=== PATIENT | female | born 1995 | race Caucasian/White ===

== ENCOUNTER 2017-10-14 13:23 | Emergency (ER) | payer OTHER ==
[2017-10-14] MEDS ORDERED: KETOROLAC 30 MG/ML INJ ONE (14:26)
[2017-10-14] MEDS ORDERED: NA CHLORIDE 0.9% 1,000 ML ONE (14:26)
[2017-10-14 14:40] LABS: Urine Blood NEGATIVE (NEG); Urine Glucose NEGATIVE (NEG); Urine Protein TRACE (NEG); Urine pH 6.5 (5.0-7.0)
[2017-10-14 14:47] LABS: Absolute Lymphocytes (CBC) 2.8 K/uL (0.7-4.9); Absolute Monocytes 0.9 K/uL (0.1-1.3); Basophils % 0.5 % (0-1.3); Eosinophils % 1.1 % (0-4.4); Hematocrit 25.5 % (36.0-45.0); Lymphocytes % 23.4 % (15.3-44.8); MCH 32.3 pg (27.0-35.0); MPV 6.8 fL (7.6-11.3); Monocytes % 7.7 % (3.3-12.3); RBC Red Blood Cell Count 2.72 M/uL (3.86-4.86)
[2017-10-14 14:58] LABS: Urine Bacteria <20 /HPF (<20); Urine RBC <5 /HPF (NONE SEEN)
[2017-10-14 14:59] LABS: ALT/SGPT 17 U/L (12-78); AST/SGOT 12 U/L (15-37); Albumin 3.1 g/dL (3.4-5.0); Alkaline Phosphatase 68 U/L (45-117); Amylase Level 25 U/L (25-115); BUN Blood Urea Nitrogen 12 mg/dL (7-18); Bicarbonate 23 mmol/L (21-32); Bilirubin Direct < 0.1 mg/dL (0-0.2); Bilirubin Total 0.2 mg/dL (0.2-1.0); Glucose Level 79 mg/dL (74-106); Lipase 58 U/L (73-393); Potassium 4.1 mmol/L (3.5-5.1); Protein, Total 6.5 g/dL (6.4-8.2); Sodium Level 139 mmol/L (136-145)
[2017-10-14 14:59] LABS: Urine Culture Reflex Order NOT NEEDED
--- NOTE | 2017-10-14 15:11 | RAD REPORT ---
EXAM DESCRIPTION: CTAbdomen Pelvis W Contrast - 10/14/2017 2:47 pm CLINICAL HISTORY: Abdominal pain. IV only;Abd pain COMPARISON: CT ABD PELVIS W CONTRAST dated 11/06/2007; CT ABD PELVIS W CONTRAST dated 10/22/2007; CT AB D PELVIS W CONTRAST dated 01/06/2010 TECHNIQUE: Biphasic CT imaging of the abdomen and pelvis was performed with 100 ml non-ionic IV cont rast. All CT scans are performed using dose optimization technique as appropriate and may include automated exposure control or mA/KV adjustment according to patient size. FINDINGS: The lung bases are clear. The liver, spleen, pancreas, adrenal glands and left kidney are within normal limits. Mild right hydr onephrosis and hydroureter is seen without obstructing calculus. No bowel obstruction, free air, free fluid or abscess. Moderate fecal retention in the colon. The dae endix is not identified as a discrete structure, however, no secondary findings of appendicitis are i dentified. No evidence of significant lymphadenopathy. Enlarged uterus is present with fluid and soft tissue in the endometrial canal. Subcutaneo us air anterior pelvis soft tissues with trace fluid is likely postsurgical nature. No suspicious bony findings. IMPRESSION: Moderate fecal retention in the colon. uterus with fluid and soft tissue material in the endometrial canal. Mild right hydronephrosis and hydroureter without obstructing calculus identified.
[2017-10-14] MEDS ORDERED: BISACODYL E.C. 5 MG TAB PO ONE (16:37)
[2017-10-14] MEDS ORDERED: MAGNE/ALUM HYDROXD 30 ML UCUP ONE (16:53)
--- NOTE | 2017-10-14 18:15 | ER ---
Nurse's Notes [facility] Name: Marjorie Alcaraz Age: 22 yrs Sex: Female : 1995 Arrival Date: 10/14/2017 Time: 13:25 Bed 25 Private MD: Diagnosis: Constipation;Anemia, unspecified;Other abdominal pain Presentation: 10/14 13:28 Presenting complaint: Patient states: Constipation for 2 weeks. Patient reports recent aj delivery 1 week ago. Transition of care: patient was not received from another setting of care. Onset of symptoms was October 07, 2017. Risk Assessment: Do you want to hurt yourself or someone else? Patient reports no desire to harm self or others. Initial Sepsis Screen: Does the patient meet any 2 criteria? No. Patient's initial sepsis screen is negative. Does the patient have a suspected source of infection? No. Patient's initial sepsis screen is negative. Care prior to arrival: None. 13:28 Method Of Arrival: Ambulatory aj 13:28 Acuity: TOBIAS 3 aj Triage Assessment: 13:30 General: Appears in no apparent distress. comfortable, Behavior is calm, cooperative, aj appropriate for age. Pain: Complains of pain in anus. Neuro: Level of Consciousness is awake, alert, obeys commands, Oriented to person, place, time, situation, Appropriate for age. Respiratory: Airway is patent Respiratory effort is even, unlabored, Respiratory pattern is regular, symmetrical. GI: Reports constipation. Derm: Skin is intact, is healthy with good turgor, Skin is pink, warm \T\ dry. normal. 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 - Social history:: Smoking status: Patient uses tobacco products, smokes one-half pack cigarettes per day. - Ebola Screening: : Patient negative for fever greater than or equal to 101.5 degrees Fahrenheit, and additional compatible Ebola Virus Disease symptoms Patient denies exposure to infectious person Patient denies travel to an Ebola-affected area in the 21 days before illness onset No symptoms or risks identified at this time. Screenin:40 Abuse screen: Denies threats or abuse. Denies injuries from another. Nutritional kr2 screening: No deficits noted. Tuberculosis screening: No symptoms or risk factors identified. Fall Risk None identified. Assessment: 13:30 General: Appears in no apparent distress. uncomfortable, well groomed, well developed, kr2 well nourished, Behavior is calm, cooperative, appropriate for age. Pain: Complains of pain in pelvis and anus Pain currently is 10 out of 10 on a pain scale. Quality of pain is described as aching, pressure, Is continuous, Alleviated by nothing. Neuro: Level of Consciousness is awake, alert, obeys commands, Oriented to person, place, time, situation, Appropriate for age. Cardiovascular: Capillary refill < 3 seconds in bilateral fingers Patient's skin is warm and dry. Respiratory: Airway is patent Respiratory effort is even, unlabored, Respiratory pattern is regular, symmetrical. GI: Bowel sounds hypoactive in right lower quadrant and left lower quadrant Abd is rigid X 4 quads. : Denies burning with urination. EENT: Oral mucosa is moist. Derm: Skin is intact, is healthy with good turgor, Skin is pink, warm \T\ dry. Musculoskeletal: Circulation, motion, and sensation intact. 15:49 Reassessment: Patient appears in no apparent distress at this time. Patient and/or kr2 family updated on plan of care and expected duration. Pain level reassessed. Patient is alert, oriented x 3, equal unlabored respirations, skin warm/dry/pink. 16:30 Reassessment: Patient appears in no apparent distress at this time. Patient and/or kr2 family updated on plan of care and expected duration. Pain level reassessed. Patient is alert, oriented x 3, equal unlabored respirations, skin warm/dry/pink. 17:30 Reassessment: Patient up to ambulate to promote bowel movement. kr2 18:00 Reassessment: Patient appears in no apparent distress at this time. Patient and/or kr2 family updated on plan of care and expected duration. Pain level reassessed. Patient is alert, oriented x 3, equal unlabored respirations, skin warm/dry/pink. Administered soap suds enema as ordered. Patient tolerated well. 18:15 Reassessment: Patient up to restroom, reports she passed a large piece of stool. kr2 18:21 Reassessment: Patient up to bathroom again at this time, enema and medications kr2 effective. Vital Signs: 13:30 BP 128 / 80; Pulse 97; Resp 16; Temp 97.4; Pulse Ox 100% on R/A; Weight 58.97 kg; aj Height 5 ft. 0 in. (152.40 cm); 14:00 BP 114 / 78; Pulse 79; Resp 16; Pulse Ox 98% on R/A; kr2 15:50 BP 102 / 64; Pulse 75; Resp 17; Pulse Ox 100% on R/A; kr2 18:31 BP 116 / 98; Pulse 91; Resp 17; Pulse Ox 100% on R/A; kr2 13:30 Body Mass Index 25.39 (58.97 kg, 152.40 cm) ED Course: 13:25 Patient arrived in ED. as 13:30 Triage completed. aj 13:30 Arm band placed on right wrist. Patient placed in an exam room. aj 13:40 Patient has correct armband on for positive identification. Bed in low position. Call kr2 light in reach. Side rails up X2. Adult w/ patient. Pulse ox on. NIBP on. Door closed. Warm blanket given. Head of bed elevated. 13:59 Cady Davies NP is PHCP. 1 13:59 Marshal Vazquez MD is Attending Physician. rh1 13:59 Briana Pizano, RUBEN is Primary Nurse. kr2 14:00 Urine collected: clean catch specimen, cloudy. kr2 14:27 Radiology exam delayed due to IV insertion attempt and/or patient not having kw1 appropriate IV at this time. 14:30 Inserted saline lock: 20 gauge in right antecubital area, using aseptic technique. kr2 Blood collected. 14:45 CT completed. Patient moved to CT via wheelchair. Patient moved back from CT. cw1 14:48 CT Abd/Pelvis - W/Contrast In Process Unspecified. EDMS 18:31 No provider procedures requiring assistance completed. kr2 18:42 IV discontinued, intact, bleeding controlled, No redness/swelling at site. Pressure kr2 dressing applied. Administered Medications: 14:38 Drug: NS 0.9% 1000 ml Route: IV; Rate: 1 bolus; Site: right antecubital; kr2 16:00 Follow up: Response: No adverse reaction; IV Status: Completed infusion kr2 14:38 Drug: Ketorolac 30 mg Route: IVP; Site: right antecubital; kr2 15:00 Follow up: Response: No adverse reaction; Pain is decreased kr2 16:43 Drug: Dulcolax Delayed Release Tablet 5 mg Route: PO; kr2 18:41 Follow up: Response: No adverse reaction; Other; Patient had bowel movement kr2 16:59 Drug: Milk of Magnesia Suspension 400 mg/5 mL 30 ml Route: PO; kr2 18:40 Follow up: Response: No adverse reaction; Pain is decreased; Other; medication kr2 effective-patient had bowel movement Outcome: 18:15 Discharge ordered by . snw 18:32 Condition: improved kr2 18:32 Discharge instructions given to patient, family, Instructed on discharge instructions, follow up and referral plans. medication usage, Demonstrated understanding of instructions, follow-up care, medications, Prescriptions given X 1. 18:42 Discharged to home ambulatory, with family. kr2 18:43 Patient left the ED. kr2 Signatures: Dispatcher [employer] EDMS Drea Rivera, RN RN Lena Tucker, SALON PROFESSIONAL-C SALON PROFESSIONAL-Charlene Rasheed Crystal cw1 Cady Davies NP VEHICLE MECHANIC 1 Briana Pizano RN RN kr2 Janelle Araujo kw1
--- NOTE | 2017-10-14 18:16 | EDPHYS ---
Physician Documentation [facility] Name: Marjorie Alcaraz Age: 22 yrs Sex: Female : 1995 Arrival Date: 10/14/2017 Time: 13:25 Bed 25 Private MD: ED Physician Marshal Vazquez HPI: 10/14 14:02 This 22 yrs old Female presents to ER via Ambulatory with complaints of rh1 Constipation - CSection x1 wk ago. 14:02 The patient presents with abdominal pain that is diffuse. Onset: The symptoms/episode rh1 began/occurred 2 day(s) ago. The symptoms do not radiate. Associated signs and symptoms: Pertinent positives: constipation, nausea, Pertinent negatives: diarrhea, dysuria, fever, shortness of breath, vaginal discharge, vomiting. The symptoms are described as achy, sharp. Modifying factors: The symptoms are alleviated by nothing, the symptoms are aggravated by pressure, touching the area. Severity of pain: At its worst the pain was moderate in the emergency department the pain is unchanged. The patient has not experienced similar symptoms in the past. The patient has been recently seen by a physician: 1 week(s) ago, for apparently unrelated complaints. She had a c - section approx. 1 week ago, and reports she has been unable to have a bowel movement for the past 2 weeks. She has tried OTC laxatives, stimulant laxatives as well as enemas without relief. She has been taking tylenol #3 4 - 6 times daily. + nausea, denies any emesis. Denies any fever/chills, urinary symptoms, diarrhea, vaginal/rectal bleeding.. 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 - Social history:: Smoking status: Patient uses tobacco products, smokes one-half pack cigarettes per day. - Ebola Screening: : Patient negative for fever greater than or equal to 101.5 degrees Fahrenheit, and additional compatible Ebola Virus Disease symptoms Patient denies exposure to infectious person Patient denies travel to an Ebola-affected area in the 21 days before illness onset No symptoms or risks identified at this time. ROS: 14:02 Constitutional: Negative for fever, chills rh1 14:02 Cardiovascular: Negative for chest pain, edema, palpitations. 14:02 Respiratory: Negative for cough, shortness of breath, wheezing. 14:02 Abdomen/GI: Positive for abdominal pain, nausea, constipation, Negative for vomiting, diarrhea, rectal pain, rectal bleeding. 14:02 Back: Negative for decreased range of motion, pain at rest, pain with movement, radiated pain. 14:02 : Negative for urinary symptoms, small amounts, vaginal bleeding, vaginal discharge. 14:02 Skin: Negative for diaphoresis, pallor, rash. 14:02 Neuro: Negative for altered mental status, dizziness, syncope, near syncope. 14:02 All other systems are negative. Exam: 14:02 Constitutional: This is a well developed, well nourished patient who is awake, alert, rh1 and in no acute distress. Head/Face: Normocephalic, atraumatic. Neck: Trachea midline, and no cervical lymphadenopathy. Supple, full range of motion without nuchal rigidity. No Meningismus. Chest/axilla: Normal chest wall appearance and motion. Nontender with no deformity. No lesions are appreciated. Cardiovascular: Regular rate and rhythm with a normal S1 and S2. No gallops, murmurs, or rubs. No JVD. No pulse deficits. Respiratory: Lungs have equal breath sounds bilaterally, clear to auscultation. No rales, rhonchi or wheezes noted. No increased work of breathing. 14:02 Back: No spinal tenderness. No costovertebral tenderness. Full range of motion. Skin: Warm, dry with normal turgor. Normal color with no rashes, no lesions, and no evidence of cellulitis. 14:02 Abdomen/GI: Inspection: abdomen appears normal, bruising, is not seen, distension, is not seen, scar(s), are noted in the suprapubic area, approx. 8 in midline lower suprapubic horizontal incision, well approximated, minimal crusting, without erythema; with dark purple contusion overlying pelvic bone, Bowel sounds: normal, in all quadrants, active, all quadrants, Palpation: soft, in all quadrants, moderate abdominal tenderness, in all quadrants, rebound tenderness, is not appreciated, voluntary guarding, is elicited in all quadrants, involuntary guarding, is not appreciated. 14:02 Neuro: Orientation: is normal, to person, place \T\ time. Mentation: is normal, lucid, able to follow commands, Motor: is normal, moves all fours, Sensation: is normal, no obvious gross deficits, numbness, is not appreciated, tingling, is not appreciated, Gait: is steady, at a normal pace, without difficulty. 17:50 Abdomen/GI: Rectal exam: rectal tone normal, Stool: absent stool palpable in vault, rh1 mass, is not appreciated, swelling, is not appreciated, tenderness, is not appreciated, fecal impaction, is not appreciated. Vital Signs: 13:30 BP 128 / 80; Pulse 97; Resp 16; Temp 97.4; Pulse Ox 100% on R/A; Weight 58.97 kg; aj Height 5 ft. 0 in. (152.40 cm); 14:00 BP 114 / 78; Pulse 79; Resp 16; Pulse Ox 98% on R/A; kr2 15:50 BP 102 / 64; Pulse 75; Resp 17; Pulse Ox 100% on R/A; kr2 18:31 BP 116 / 98; Pulse 91; Resp 17; Pulse Ox 100% on R/A; kr2 13:30 Body Mass Index 25.39 (58.97 kg, 152.40 cm) aj MDM: 14:02 Patient medically screened. rh1 16:07 Data reviewed: vital signs, nurses notes, lab test result(s), radiologic studies, CT rh1 scan. Data interpreted: Pulse oximetry: on room air is 100 %. Interpretation: normal. Physician consultation: Ebony Patricia MD was called at 16:09, was contacted at 16:09, regarding consult, patient's condition, reviewed HPI, lab results and ct findings, reports right hydronephrosis/hydroureter not unexpected, encouraged weaning from narcotics and use of stool softeners/laxatives, enema to assist bowel movement. 18:05 Transition of care: After a detail discussion of the patient's case, care is rh1 transferred to [facility]. 18:23 Response to treatment: the patient's symptoms have markedly improved after treatment. [facility] 10/14 14:15 Order name: Amylase, Serum; Complete Time: 14:59 10/14 14:15 Order name: Basic Metabolic Panel; Complete Time: 14:59 10/14 14:15 Order name: CBC with Diff; Complete Time: 14:51 10/14 14:15 Order name: Creatinine for Radiology; Complete Time: 14:57 10/14 14:15 Order name: Hepatic Function; Complete Time: 14:59 10/14 14:15 Order name: Lipase; Complete Time: 14:59 10/14 14:15 Order name: Urine Microscopic Only; Complete Time: 14:59 10/14 14:15 Order name: CT Abd/Pelvis - W/Contrast; Complete Time: 15:30 10/14 14:25 Order name: Urine Dipstick--Ancillary (enter results); Complete Time: 14:43 10/14 14:25 Order name: Urine --Ancillary (enter results); Complete Time: 14:43 eb 10/14 14:15 Order name: Urine Test (obtain specimen); Complete Time: 14:38 10/14 14:15 Order name: IV Saline Lock; Complete Time: 14:38 10/14 14:15 Order name: Labs collected and sent; Complete Time: 14:38 10/14 14:15 Order name: Urine Dipstick-Ancillary (obtain specimen); Complete Time: 14:38 10/14 16:14 Order name: Misc. Order: soap suds enema; Complete Time: 18:10 10/14 16:15 Order name: Misc. Order: po challenge; Complete Time: 18:10 rh1 Administered Medications: 14:38 Drug: NS 0.9% 1000 ml Route: IV; Rate: 1 bolus; Site: right antecubital; kr2 16:00 Follow up: Response: No adverse reaction; IV Status: Completed infusion kr2 14:38 Drug: Ketorolac 30 mg Route: IVP; Site: right antecubital; kr2 15:00 Follow up: Response: No adverse reaction; Pain is decreased kr2 16:43 Drug: Dulcolax Delayed Release Tablet 5 mg Route: PO; kr2 18:41 Follow up: Response: No adverse reaction; Other; Patient had bowel movement kr2 16:59 Drug: Milk of Magnesia Suspension 400 mg/5 mL 30 ml Route: PO; kr2 18:40 Follow up: Response: No adverse reaction; Pain is decreased; Other; medication kr2 effective-patient had bowel movement Disposition: 18:40 Co-signature as Attending Physician, Marshal Vazquez MD I agree with the assessment and kdr plan of care. Disposition: 10/14/17 18:15 Discharged to Home. Impression: Constipation, Anemia, unspecified, Other abdominal pain. - Condition is Stable. - Discharge Instructions: Abdominal Pain, Adult, Constipation, Adult, and Anemia, Preventing Constipation After Surgery. - Prescriptions for docusate sodium 100 mg Oral capsule - take 1 capsule by ORAL route once daily; 20 capsule. - Medication Reconciliation Form, Thank You Letter, Antibiotic Education, Prescription Opioid Use form. - Follow up: Private Physician; When: 1 - 2 days; Reason: Recheck today's complaints, Continuance of care, Re-evaluation by your physician. Follow up: Emergency Department; When: As needed; Reason: Fever > 102 F, If symptoms return, Trouble breathing, Worsening of condition. - Problem is new. - Symptoms have improved. - Notes: 1. Otain magnesium citrate from over the counter and drink 1 bottle. If no bowel movement in 6 hours, repeat dose. 2. Drink 64 oz. water daily. 3. Wean off of the tylenol 3#, and take ibuprofen or regular tylenol.Make sure you takeno more than 4000mg of tylenol in a 24 hour period. Signatures: Dispatcher [employer] Drea Killian RN RN aj Rittger, Kevin, MD MD [facility] Lena Nieves, INSURANCE EXECUTIVE-C INSURANCE EXECUTIVE-Cady [place], DERIC STORE MANAGEMENT TRAINEE rh1 Briana Pizano RN RN kr2 Corrections: (The following items were deleted from the chart) 18:43 18:15 10/14/2017 18:15 Discharged to Home. Impression: Constipation; Anemia, kr2 unspecified; Other abdominal pain. Condition is Stable. Discharge Instructions: Abdominal Pain, Adult, Constipation, Adult, and Anemia, Preventing Constipation After Surgery. Prescriptions for docusate sodium 100 mg Oral capsule - take 1 capsule by ORAL route once daily; 20 capsule. and Forms are Medication Reconciliation Form, Thank You Letter, Antibiotic Education, Prescription Opioid Use. Follow up: Private Physician; When: 1 - 2 days; Reason: Recheck today's complaints, Continuance of care, Re-evaluation by your physician. Follow up: Emergency Department; When: As needed; Reason: Fever > 102 F, If symptoms return, Trouble breathing, Worsening of condition. Problem is new. Symptoms have improved. snw
== END 2017-10-14 18:43 | disposition home or self-care (01) ==
LOC: ER 13:23
DX: K59.00 Constipation, unspecified (principal); D64.9 Anemia, unspecified; F17.210 Nicotine dependence, cigarettes, uncomplicated; Z88.5 Allergy status to narcotic agent
CPT/HCPCS: 36415; 74177; 80048; 80076; 81003; 81015; 81025; 82150; 83690; 85025; 96361; 96374; 99284; J7030; Q9967